=== PATIENT | female | born 1965 | race Hispanic/Latino ===

== ENCOUNTER 2025-03-17 18:12 | Emergency (ER) | payer MEDICARE ==
[~2025-03-17] VITALS: Ht 160 cm; Wt 99.8 kg
[~2025-03-17 18:12] MED LIST: AMIT25TA21 PO; ASPI-1443 PO; CETI-89 PO; DEXM20CP PO; DULO60CA45 PO; ESOM40CA PO; FLUT16H NASAL; FOLI1TAB15 PO; GABA-1405 PO; INSLAN SQ; LAMO200T PO; LISI20TA24 PO; METH-812 PO; METH2.5T6 PO; PALI9TAB PO; PREG100C PO; RANI-662 PO; SITA100T12 PO; SULF500T8 PO; TOFA5TAB PO; [UNRECOGNIZED DRUG - CODE] PO; [UNRECOGNIZED DRUG - OTHER] PO; oxybutynin PO
--- NOTE | 2025-03-17 18:26 | ERN ---
General Chief Complaint: Congestion Stated Complaint: COUGH, CHEST CONGESTION Time Seen by MD: 18:14 Source: patient History of Present Illness Initial Comments Patient is a 59-year-old female coming in complaining of URI symptoms. Patient states that these symptoms began a couple of days ago several family members are presenting with similar symptoms. No fever or chills. She does however state that she has lost her sense of taste. Allergies: Coded Allergies: Penicillins (Unverified Allergy, Severe, RED BLOTCHES, 06/02/13) Home Meds Reported Medications Aspirin (Aspirin EC) 81 Mg Tablet.dr, 81 MG PO AM, TAB 12/26/14 Esomeprazole Magnesium (Nexium) 40 Mg Capsule.dr, 40 MG PO DAILY, CAP 12/26/14 Isomethept/Dichlphn/Acetaminop (Uobwlgpswx-Krbgievmrd-Cfdacbiz) 1 Each Capsule, 1 EACH PO BID, CAP 12/01/14 Insulin Glargine,Hum.rec.anlog (Lantus) 100 Units/Ml Inj, 100 UNITS SQ AD, ML 12/01/14 Dexmethylphenidate HCl (Focalin Xr) 20 Mg Cpmp.50.50, 20 MG PO DAILY 11/28/14 Duloxetine HCl (Cymbalta) 60 Mg Capsule.dr, 60 MG PO DAILY, CAP 11/28/14 Amitriptyline HCl (Amitriptyline HCl) 25 Mg Tablet, 25 MG PO HS, TAB 11/28/14 [vistaril pamoate] No Conflict Check, 25 MG PO TID 11/28/14 Paliperidone (Invega) 9 Mg Tab.er.24, 9 MG PO DAILY 11/28/14 Lamotrigine (Lamictal) 200 Mg Tablet, 200 MG PO DAILY, TAB 11/28/14 Folic Acid (Folic Acid) 1 Mg Tablet, 1 MG PO DAILY, TAB 11/28/14 Tofacitinib Citrate (Xeljanz) 5 Mg Tablet, 5 MG PO BID, TAB 11/28/14 Pregabalin (Lyrica) 100 Mg Capsule, 100 MG PO BID, CAP 11/28/14 Sulfasalazine (Sulfasalazine) 500 Mg Tablet, 500 MG PO DAILY, TAB 11/28/14 Gabapentin (Gabapentin) 600 Mg Tablet, 600 MG PO TID, TAB 11/28/14 Methotrexate Sodium (Methotrexate) 2.5 Mg Tablet, PO weekly, TAB 11/28/14 Sitagliptin Phosphate (Januvia) 100 Mg Tablet, 100 MG PO DAILY, TAB 11/28/14 Ranitidine HCl (Zantac) 150 Mg Tablet, 150 MG PO noon and hs, TAB 11/28/14 [oxybutynin] No Conflict Check, 10 MG PO DAILY 11/28/14 Fluticasone Propionate (Flonase Nasal [place]) 50 Mcg/[place], 50 MCG NASAL BID, SPRAY 11/28/14 Methocarbamol (Methocarbamol) 750 Mg Tablet, 750 MG PO TID, TAB 11/28/14 Cetirizine HCl (Zyrtec) 10 Mg Tablet, 10 MG PO HS, TAB 11/28/14 Lisinopril (Lisinopril) 20 Mg Tablet, 20 MG PO DAILY, TAB 11/28/14 Past Medical History Past Medical History: Diabetes-Type II, Heart Disease, Hypertension Medical History Other: THYROID PROBLEM Past Surgical History: Hysterectomy ROS Dictation CONSTITUTIONAL: No chills, no fever, no weakness, no diaphoresis, no malaise. HEAD/FACE: No signs of trauma. EENT: No eye pain, no blurred vision, no tearing, no double vision, no ear pain, no ear discharge, no nose pain, no nasal congestion, no throat pain, no throat swelling, no mouth pain. RESPIRATORY: No cough, no orthopnea, no SOB, no stridor, no wheezing. CARDIOVASCULAR: No chest pain, no edema, no palpitations, no syncope. GASTROINTESTINAL/ABDOMINAL: No abdominal pain, no constipation, no diarrhea, no nausea, no vomiting. GENITOURINARY: No abnormal discharge, no dysuria, no frequent urination, no hematuria. No complaints of pain in the genitals. MUSCULOSKELETAL: No back pain, no gout, no joint pain, no joint swelling, no muscle pain, no muscle stiffness, no neck pain. INTEGUMENTARY: No change in color, no change in hair/nails, no dryness, no lesion, no lumps, no rash. NEUROLOGICAL/PSYCH: No anxiety, not depressed, no emotional problem, no headache, no numbness, no pre-existing deficit, no history of seizures, no tremors, no weakness. HEMATOLOGIC/LYMPHATIC: Not anemic, no history of blood clots, no apparent bleeding, no bruising, glands not swollen. All Systems Negative, Except as Noted. Physical Exam Physical Exam Dictation VITAL SIGNS: Reviewed. GENERAL APPEARANCE: Alert, oriented x3, no acute distress, obese. HEAD AND FACE: Non-traumatic. EYES: PERRL, pink conjunctivas, eyelid no trauma, anterior chamber clear. EARS: Pinnas intact and no signs of trauma or erythema. Ear canals clear and no discharge. TMs no erythema. NOSE: No discharge, no bleeding. OROPHARYNX: Mouth normal, teeth no caries, tongue pink. Pharynx clear, no erythema. Tonsils no exudates, no abscesses noted. Mucous membrane moist. NECK: Supple, non-tender, no thyromegaly, no masses, no JVD, no bruits. BREAST: Deferred. CHEST: No tenderness, no crepitus, no paradoxical movement, no retractions. LUNGS: Clear, well-ventilated, symmetric, no rales, no wheezing, no rhonchi, no stridor, good breath sounds bilaterally. HEART: Regular rate, regular rhythm, no murmur, no gallops. VASCULAR: No peripheral edema. ABDOMEN: Soft, positive bowel sounds, nondistended, no guarding, nontender, no rebound, no masses no hepatomegaly, no splenomegaly, no Rpice's sign, no h ernias. RECTAL: Deferred. GENITAL: Deferred. NEUROLOGICAL: Normal speech, gross motor function intact, gross sensory functi on intact. MUSCULOSKELETAL: Neck nontender, full range of motion, back nontender, full range of motion. EXTREMITIES: Nontender, full range of motion. SKIN: Color pink, dry, no turgor, no rash, no lacerations, no abrasions, no contusions. LYMPHATICS: Deferred. Results Laboratory and Microbiology Lab and Micro Result Laboratory Tests Test 03/17/25 18:24 Influenza Type A Antigen Negative For Type A Influenza Type B Antigen Negative For Type B SARS-CoV-2 Antigen (Rapid) POSITIVE FOR SARS AG Group A Streptococcus Rapid negative (NEGATIVE) Labs Reviewed?: Yes MDM MDM: Differential diagnosis: Rationale: Tests considered and ordered secondary to shared decision making include: Previous outside records reviewed: Old ER visits. Risk of complication and/or morbidity or mortality of patient management: None Medications-Per medication reconciliation Need for hospitalization: Patient does not meet criteria for hospitalization. Need for emergency major/minor surgery: No There are no social concerns with this patient. Prescription drug management Prescriptions will include symptomatic care Patient's prior external medical records from other ER visits were reviewed by me as indicated. Prior testing and results from previous visits were reviewed. Prior tests were taken into account with medical decision making and resource utilization, independent historian/historians were used to obtain complete medical history. I independently interpreted the test that were performed, results were reviewed by me and considered findings on radiology if ordered. Medical management and examination interpretation discussions were had by me with other qualified healthcare professionals as indicated for the patient's care. ED Course Orders Procedure Category Date Status Time Covid19 (Sars Antigen LAB 03/17/25 Complete Rapid) 18:17 Influenza Type A & B, LAB 03/17/25 Complete Rapid 18:17 Rapid (Group A Strep) LAB 03/17/25 Complete 18:17 Vital Signs Date Time Temp Pulse Resp B/P (MAP) Pulse Ox O2 Delivery O2 Flow Rate FiO2 03/17/25 19:14 98.2 85 16 130/63 97 Room Air* 0 21 03/17/25 18:14 98.2 98 18 130/63 97 Room Air DX & DISP Disposition: Discharge Departure Impression: Primary Impression: COVID Condition: Stable Scripts Nirmatrelvir/Ritonavir (Paxlovid 150-100 mg (Moderate)) 150 Mg (10)-100 Mg (10) Tab.ds.pk 1 EACH PO BID for covid for 5 Days, #10 10 Prov: PARISA PARRISH MD 03/17/25 Referrals: JOANNE PAUL MD (PCP) CHANEL MUKHERJEE MD Mar 17, 2025 18:26 PARISA PARRISH MD Mar 17, 2025 19:41
[2025-03-17 18:50] LABS: RAPID GROUP A STREP negative (NEGATIVE)
[2025-03-17 19:07] LABS: INFLUENZA TYPE A Negative For Type A (NEGATIVE); INFLUENZA TYPE B Negative For Type B (NEGATIVE)
[2025-03-17 19:10] LABS: COVID19 (SARS ANTIGEN RAPID) POSITIVE FOR SARS AG (NEGATIVE)
[2025-03-17 19:14] VITALS: BP 130/63; PULSE 85; RESP 16; TEMP 98.2; O2SAT 97
[2025-03-17] MEDS ORDERED: NIRM1TAB7 PO (19:41)
== END 2025-03-17 19:58 | disposition home or self-care (01) ==
LOC: EDH 18:12
DX: U07.1 COVID-19 (principal); E11.9 Type 2 diabetes mellitus without complications; I11.9 Hypertensive heart disease without heart failure; Z79.622 Long term (current) use of Janus kinase inhibitor; Z79.631 Long term (current) use of antimetabolite agent; Z79.84 Long term (current) use of oral hypoglycemic drugs; Z79.899 Other long term (current) drug therapy; Z88.0 Allergy status to penicillin; Z90.710 Acquired absence of both cervix and uterus
CPT/HCPCS: 87426; 87804; 87880; 99283